=== PATIENT | female | born 1955 | race Caucasian/White ===

== ENCOUNTER 2022-05-16 19:30 | Outpatient (CLI) | payer MEDICARE, OTHER | END 2022-05-16 19:31 | disposition home or self-care (01) | LOC: SLEEPLAB 19:30 | PROVIDERS: ATTEND Internal Medicine | DX: G47.33 Obstructive sleep apnea (adult) (pediatric) (principal); R53.83 Other fatigue; I10 Essential (primary) hypertension; R06.83 Snoring; G47.10 Hypersomnia, unspecified; G47.00 Insomnia, unspecified; E66.9 Obesity, unspecified; Z68.42 Body mass index [BMI] 45.0-49.9, adult | CPT/HCPCS: 95811 ==

== ENCOUNTER 2024-06-06 15:57 | Outpatient (CLI) | payer MEDICARE, OTHER ==
[2024-06-06 17:38] LABS: #Basophils 0.11 10x3/uL (0.0-0.2); %Eosinophils 2.1 % (0.0-10.0); %Lymphocytes 36.7 % (21.0-51.0); %Monocytes 7.8 % (0.0-10.0); %Neutrophils 51.3 % (42.0-75.0); Hematocrit 40.8 % (36.0-47.0); Hemoglobin 14.4 g/dL (12.0-16.0); Mean Corpuscular HGB CONC 35.3 g/dL (32.0-36.0); Mean Corpuscular Hemoglobin 32.5 pg (27.0-31.0); Mean Corpuscular Volume 92.1 fL (78.0-98.0); Mean Platelet Volume 10.5 fL (7.4-10.4); Platelet Count 279 10x3/uL (130-400); RBC Distribution Width 13.3 % (11.5-14.5); Red Blood Cell (RBC) Count 4.43 mill/uL (4.20-5.40)
[2024-06-06 18:04] LABS: ALT (SGPT) 58 U/L (8-55); AST (SGOT) 49 U/L (5-34); Albumin 3.7 g/dL (3.4-4.8); Alkaline Phosphatase 151 U/L (40-110); Anion Gap 17 mmol/L (10-20); BUN (Urea Nitrogen) 7 mg/dL (9.8-20.1); Bilirubin, Direct 0.2 mg/dL (0.1-0.3); Bilirubin, Total 0.5 mg/dL (0.2-1.2); Calc. Creatinine Clearance 0 mL/min (70-130); Calcium 9.4 mg/dL (7.8-10.44); Carbon Dioxide 26 mmol/L (23-31); Chloride 99 mmol/L (98-107); Estimated GFR 93; Globulin 3.6 g/dL (2.4-3.5); Glucose 116 mg/dL (80-115); Potassium 3.7 mmol/L (3.5-5.1); Protein, Total 7.3 g/dL (5.8-8.1); Sodium 138 mmol/L (136-145)
== END 2024-06-06 15:58 | disposition home or self-care (01) ==
LOC: LABBT 15:57
PROVIDERS: ATTEND Surgery
DX: Z01.818 Encounter for other preprocedural examination (principal); K80.10 Calculus of gallbladder with chronic cholecystitis without obstruction
CPT/HCPCS: 80053; 80076; 85025; 93005; 93010

== ENCOUNTER 2024-06-08 07:34 | Inpatient (IN) | payer MEDICARE, OTHER ==
[2024-06-08] MEDS ORDERED: EPINEPHrine 1 MG/ML VIAL ONE (07:53)
[2024-06-08] MEDS ORDERED: Bupivacaine 0.25% HCL 30 ML VIAL ONE (07:54)
[2024-06-08] MEDS ORDERED: cefOXitin 2 GM VIAL ONE (08:09)
[2024-06-08] MEDS ORDERED: fentaNYL PF 100 MCG/2 ML SYRINGE ONE (08:20)
[2024-06-08] MEDS ORDERED: PROPOFOL 40 ML ONE (08:20)
[2024-06-08] MEDS ORDERED: Rocuronium Bromide 10 MG/ML (10ML VIAL) ONE (08:20)
[2024-06-08] MEDS ORDERED: Iopamidol 15 ML ONE ×2 (08:23)
[2024-06-08] MEDS ORDERED: diphenhydrAMINE 50 MG/ML VIAL ONE (08:41)
[2024-06-08] MEDS ORDERED: Metoclopramide HCl 10 MG (2 mL) VIAL ONE (08:41)
[2024-06-08] MEDS ORDERED: Ondansetron PF 4 MG/2 ML Vial ONE (08:41)
[2024-06-08] MEDS ORDERED: SUGAMMADEX SODIUM 200 MG/2 ML VIAL ONE (08:41)
[2024-06-08] MEDS ORDERED: Dexamethasone 20 MG/5 ML VIAL ONE (08:41)
[2024-06-08] MEDS ORDERED: Glucagon 1 MG/ML KIT ONE (09:12)
[2024-06-08] MEDS ORDERED: Ketorolac Tromethamine 30 MG (1 mL) VIAL ONE (09:38)
[2024-06-08] MEDS ORDERED: Labetalol HCl 100 MG/20 ML VIAL ONE (09:47)
[2024-06-08] MEDS ORDERED: Dextrose 5% in Water 1,000 ML IV PRN (10:01)
[2024-06-08] MEDS ORDERED: Promethazine HCl 25 MG/ML VIAL IM PRN ×2 (10:01→11:00)
[2024-06-08] MEDS ORDERED: hydrALAZINE 20 MG/ML VIAL SLOW IVP PRN (10:01)
[2024-06-08] MEDS ORDERED: Ipratropium/Albuterol 3 ML NEB NEB PRN (10:01)
[2024-06-08] MEDS ORDERED: HYDROcodone/Acetaminophen 10/325 mg Tablet PO PRN (10:01)
[2024-06-08] MEDS ORDERED: Glucagon 1 MG/ML KIT IM PRN (10:01)
[2024-06-08] MEDS ORDERED: Calcium Carbonate 500 MG ChewTAB PO PRN (10:01)
[2024-06-08] MEDS ORDERED: Dextrose 50% Abboject 50 ML SYRINGE SLOW IVP PRN (10:01)
[2024-06-08] MEDS ORDERED: Morphine 2 MG/ML VIAL SLOW IVP PRN (10:01)
[2024-06-08] MEDS ORDERED: Ondansetron PF 4 MG/2 ML Vial IVP PRN (10:01)
[2024-06-08] MEDS ORDERED: HYDROmorphone 0.5 MG/0.5 ML SYRINGE ONE ×2 (10:28→10:59)
[2024-06-08] MEDS ORDERED: Non-Formulary Medication 1 EACH PO PRN (10:47)
[2024-06-08] MEDS ORDERED: Ondansetron HCl/PF 4 MG/2 ML Vial IVP PRN (11:00)
[2024-06-08] MEDS ORDERED: HYDROmorphone 2 MG/ML VIAL SLOW IVP PRN (11:00)
[2024-06-08] MEDS ORDERED: fentaNYL 50 mcg/mL 1 mL Vial ONE ×2 (11:18→11:56)
[2024-06-08] MEDS ORDERED: D5 1/2 NS w/20 mEq KCL 1,000 ML ONE (13:12)
[2024-06-08] MEDS: D5 1/2 NS w/20 mEq KCL 1,000 ML IV SCH (13:59)
[2024-06-08] MEDS: Piperacillin/Tazobactam 3.375 GM in Sodium Chloride 0.9% 100 ML IVPB SCH ×2 (13:59→17:52)
[2024-06-08 14:11] VITALS: BMI 41.9
[2024-06-08] MEDS: Ketorolac Tromethamine 30 MG (1 mL) VIAL IVP SCH (15:28)
[2024-06-08] MEDS: Famotidine 20 MG TAB PO SCH (19:43)
[2024-06-08] MEDS: Famotidine/PF 20 mg/2ml Vial SLOW IVP SCH (19:44)
[2024-06-09 06:00] LABS: #Basophils 0.04 10x3/uL (0.0-0.2); %Basophils 0.2 % (0.0-1.0); %Eosinophils 0.3 % (0.0-10.0); %Lymphocytes 15.5 % (21.0-51.0); %Monocytes 7.2 % (0.0-10.0); %Neutrophils 75.7 % (42.0-75.0); Hematocrit 35.2 % (36.0-47.0); Mean Corpuscular HGB CONC 34.1 g/dL (32.0-36.0); Mean Corpuscular Hemoglobin 32.4 pg (27.0-31.0); Mean Corpuscular Volume 95.1 fL (78.0-98.0); Mean Platelet Volume 10.5 fL (7.4-10.4); Platelet Count 227 10x3/uL (130-400); RBC Distribution Width 13.8 % (11.5-14.5)
[2024-06-09 06:15] LABS: ALT (SGPT) 71 U/L (8-55); AST (SGOT) 53 U/L (5-34); Albumin 2.9 g/dL (3.4-4.8); Alkaline Phosphatase 98 U/L (40-110); Anion Gap 12 mmol/L (10-20); BUN (Urea Nitrogen) 5 mg/dL (9.8-20.1); Bilirubin, Total 0.3 mg/dL (0.2-1.2); Calc. Creatinine Clearance 155 mL/min (70-130); Calcium 8.4 mg/dL (7.8-10.44); Carbon Dioxide 23 mmol/L (23-31); Chloride 103 mmol/L (98-107); Estimated GFR 95; Globulin 2.9 g/dL (2.4-3.5); Glucose 218 mg/dL (80-115); Lipase 12 U/L (8-78); Potassium 4.3 mmol/L (3.5-5.1); Protein, Total 5.8 g/dL (5.8-8.1); Sodium 134 mmol/L (136-145)
[2024-06-09] MEDS ORDERED: Iopamidol 30 ML ONE (08:29)
[2024-06-09] MEDS ORDERED: SUCCINYLCHOLINE/SOD CL,ISO/PF 200 MG/10 ML SYRINGE FS ONE (12:04)
[2024-06-09] MEDS ORDERED: PHENYLEPHRINE-NS 100 MCG/ML 10 ML SYRINGE ONE (12:04)
[2024-06-09] MEDS ORDERED: Lidocaine 2% PF 5 ML VIAL ONE (12:04)
[2024-06-09] MEDS ORDERED: GLYCOPYRROLATE/PF 0.2 MG/ML VIAL ONE (12:04)
[2024-06-09] MEDS ORDERED: PROPOFOL 20 ML ONE (12:04)
[2024-06-09] MEDS ORDERED: Indomethacin 50 MG SUPP ONE ×2 (12:04→12:32)
[2024-06-09] MEDS ORDERED: fentaNYL 50 mcg/mL 1 mL Vial ONE (12:05)
[2024-06-09] MEDS ORDERED: ePHEDrine Sulfate 50 MG/10 ML VIAL ONE (13:08)
[2024-06-09] MEDS ORDERED: Dexamethasone 4 mg/ml Vial ONE (13:23)
[2024-06-09] MEDS ORDERED: Ondansetron PF 4 MG/2 ML Vial ONE (13:23)
[2024-06-09] MEDS: Pantoprazole DR 40 MG TAB PO SCH (14:39)
[2024-06-09] MEDS: Losartan 25 MG TAB PO SCH (14:50)
[2024-06-09] MEDS: Mag-Al 1200 mg/1200 mg/30 ML UDCUP PO PRN (14:52)
[2024-06-09] MEDS: Morphine 4 MG/ML VIAL SLOW IVP PRN (15:22)
[2024-06-09 16:31] LABS: #Basophils 0.05 10x3/uL (0.0-0.2); #Eosinophils Less than 0.03 10x3/uL (0.0-0.7); %Basophils 0.3 % (0.0-1.0); %Eosinophils 0.1 % (0.0-10.0); %Lymphocytes 15.5 % (21.0-51.0); %Monocytes 5.1 % (0.0-10.0); %Neutrophils 77.7 % (42.0-75.0); Hemoglobin 13.1 g/dL (12.0-16.0); Mean Corpuscular HGB CONC 34.5 g/dL (32.0-36.0); Mean Corpuscular Hemoglobin 32.3 pg (27.0-31.0); Mean Corpuscular Volume 93.8 fL (78.0-98.0); Mean Platelet Volume 10.6 fL (7.4-10.4); Platelet Count 229 10x3/uL (130-400); RBC Distribution Width 13.9 % (11.5-14.5); Red Blood Cell (RBC) Count 4.05 mill/uL (4.20-5.40)
[2024-06-09] MEDS: fentaNYL 50 mcg/mL 1 mL Vial SLOW IVP PRN (16:43)
[2024-06-09] MEDS: Pantoprazole 40 MG VIAL IVP SCH (16:43)
[2024-06-09 16:50] LABS: ALT (SGPT) 75 U/L (8-55); AST (SGOT) 47 U/L (5-34); Albumin 3.2 g/dL (3.4-4.8); Alkaline Phosphatase 103 U/L (40-110); Anion Gap 12 mmol/L (10-20); BUN (Urea Nitrogen) 7 mg/dL (9.8-20.1); Bilirubin, Total 0.4 mg/dL (0.2-1.2); Calc. Creatinine Clearance 148 mL/min (70-130); Calcium 8.5 mg/dL (7.8-10.44); Carbon Dioxide 27 mmol/L (23-31); Chloride 102 mmol/L (98-107); Estimated GFR 94; Globulin 3.3 g/dL (2.4-3.5); Glucose 175 mg/dL (80-115); Lipase 20 U/L (8-78); Potassium 4.2 mmol/L (3.5-5.1); Protein, Total 6.5 g/dL (5.8-8.1); Sodium 137 mmol/L (136-145)
[2024-06-09] MEDS: HYDROcodone/Acetaminophen 10/325 mg Tablet PO PRN (21:11)
[2024-06-10 05:41] LABS: #Basophils 0.05 10x3/uL (0.0-0.2); #Eosinophils Less than 0.03 10x3/uL (0.0-0.7); %Basophils 0.3 % (0.0-1.0); %Lymphocytes 18.3 % (21.0-51.0); %Monocytes 5.9 % (0.0-10.0); %Neutrophils 74.1 % (42.0-75.0); Hematocrit 34.4 % (36.0-47.0); Hemoglobin 11.7 g/dL (12.0-16.0); Mean Corpuscular Hemoglobin 32.6 pg (27.0-31.0); Mean Corpuscular Volume 95.8 fL (78.0-98.0); Mean Platelet Volume 10.7 fL (7.4-10.4); Platelet Count 221 10x3/uL (130-400); RBC Distribution Width 13.7 % (11.5-14.5); Red Blood Cell (RBC) Count 3.59 mill/uL (4.20-5.40)
[2024-06-10 06:04] LABS: ALT (SGPT) 60 U/L (8-55); AST (SGOT) 32 U/L (5-34); Albumin 2.9 g/dL (3.4-4.8); Alkaline Phosphatase 103 U/L (40-110); Anion Gap 11 mmol/L (10-20); BUN (Urea Nitrogen) 6 mg/dL (9.8-20.1); Bilirubin, Total 0.3 mg/dL (0.2-1.2); Calc. Creatinine Clearance 155 mL/min (70-130); Calcium 8.1 mg/dL (7.8-10.44); Carbon Dioxide 27 mmol/L (23-31); Chloride 100 mmol/L (98-107); Estimated GFR 95; Globulin 2.9 g/dL (2.4-3.5); Glucose 169 mg/dL (80-115); Potassium 4.1 mmol/L (3.5-5.1); Protein, Total 5.8 g/dL (5.8-8.1); Sodium 134 mmol/L (136-145)
[2024-06-10 08:13] VITALS: BP 118/66; TEMP 97.8
== END 2024-06-10 09:07 | disposition home or self-care (01) | DRG 418 ==
LOC: SDC 07:34 → SURG B 13:46
PROVIDERS: ADMIT Surgery; ATTEND Surgery
PROC: 0FT44ZZ Resection of Gallbladder, Percutaneous Endoscopic Approach (ICD-10-PCS; principal; 2024-06-08)
PROC: BF131ZZ Fluoroscopy of Gallbladder and Bile Ducts using Low Osmolar Contrast (ICD-10-PCS; 2024-06-08)
PROC: 8E0W4CZ Robotic Assisted Procedure of Trunk Region, Percutaneous Endoscopic Approach (ICD-10-PCS; 2024-06-08)
PROC: 0FC98ZZ Extirpation of Matter from Common Bile Duct, Via Natural or Artificial Opening Endoscopic (ICD-10-PCS; 2024-06-09)
DX: K80.42 Calculus of bile duct with acute cholecystitis without obstruction (principal); Z68.41 Body mass index [BMI] 40.0-44.9, adult; Z79.899 Other long term (current) drug therapy; I10 Essential (primary) hypertension; K21.9 Gastro-esophageal reflux disease without esophagitis; E66.9 Obesity, unspecified
CPT/HCPCS: 36415; 47532; 74176; 74330; 80053; 80076; 83690; 85025; 88304; 93005; C1889; C1894; J0171; J0665; J0694; J1100; J1200; J1611; J1885; J2272; J2405; J2470; J2543; J2704; J2765; J3010; J3480; J3490; Q9967; S2900

== ENCOUNTER 2024-06-11 09:53 | Emergency (ER) | payer MEDICARE, OTHER ==
[2024-06-11] MEDS ORDERED: fentaNYL 50 mcg/mL 1 mL Vial ONE ×2 (10:46→12:19)
[2024-06-11] MEDS ORDERED: Pantoprazole 40 MG VIAL ONE (10:46)
[2024-06-11 10:48] LABS: %Basophils 0.8 % (0.0-1.0); %Eosinophils 1.9 % (0.0-10.0); %Monocytes 7.1 % (0.0-10.0); Hemoglobin 12.4 g/dL (12.0-16.0); Mean Corpuscular HGB CONC 33.5 g/dL (32.0-36.0); Mean Corpuscular Volume 95.4 fL (78.0-98.0); Mean Platelet Volume 10.4 fL (7.4-10.4); Platelet Count 239 10x3/uL (130-400); RBC Distribution Width 13.8 % (11.5-14.5); Red Blood Cell (RBC) Count 3.88 mill/uL (4.20-5.40)
[2024-06-11 11:04] LABS: BHCG - Serum Negative (NEGATIVE); Pregs Control Bar Appear? YES (CONTROL BAR)
[2024-06-11 11:05] LABS: Pregs Control Background? CLEAR/WHITE (CLR/WHITE)
[2024-06-11 11:07] LABS: Prothrombin Time 13.4 sec (12.0-14.7)
[2024-06-11 11:08] LABS: ALT (SGPT) 47 U/L (8-55); AST (SGOT) 23 U/L (5-34); Albumin 3.1 g/dL (3.4-4.8); Alkaline Phosphatase 95 U/L (40-110); Anion Gap 13 mmol/L (10-20); BUN (Urea Nitrogen) 11 mg/dL (9.8-20.1); Bilirubin, Total 0.3 mg/dL (0.2-1.2); Calc. Creatinine Clearance 0 mL/min (70-130); Calcium 9.1 mg/dL (7.8-10.44); Carbon Dioxide 29 mmol/L (23-31); Chloride 103 mmol/L (98-107); Estimated GFR 95; Glucose 123 mg/dL (80-115); Lipase 17 U/L (8-78); PTT 25.7 sec (22.9-36.1); Potassium 3.6 mmol/L (3.5-5.1); Protein, Total 6.1 g/dL (5.8-8.1); Sodium 141 mmol/L (136-145)
[2024-06-11 12:28] LABS: Bacteria/HPF None Seen HPF (None Seen); Bilirubin Negative (Negative); Blood, Urine Negative (Negative); CAUTI Indications for Culture Dysuria,urgency,freq; Clarity Clear (Clear); Glucose, Urine (Dipstick) Normal (Negative); Ketone, Urine Negative (Negative); Leukocyte Negative Leu/uL (Negative); Nitrite Negative (Negative); Protein, Urine (Dipstick) Negative (Neg-Trace); RBC/HPF None Seen HPF (0-3); Squamous Epithelial 0-3 HPF (0-3); Urobilinogen Normal mg/dL (Less than 2); WBC/HPF None Seen HPF (0-3); pH, Urine 7.5 (5.0-9.0)
[2024-06-11 12:41] LABS: Specific Gravity, Urine 1.006 (1.002-1.036)
[2024-06-11] MEDS ORDERED: Iopamidol-370 76% 500 ML MDV (1 ML CHARGE) ONE (12:41)
[2024-06-11 12:42] LABS: Urine Culture Reflex No No
== END 2024-06-11 12:39 | disposition home or self-care (01) ==
LOC: ERS 09:53
DX: G89.18 Other acute postprocedural pain (principal); K59.00 Constipation, unspecified; K57.90 Diverticulosis of intestine, part unspecified, without perforation or abscess without bleeding; I10 Essential (primary) hypertension; R10.11 Right upper quadrant pain
CPT/HCPCS: 74177; 80053; 81001; 83605; 83690; 84703; 85025; 85610; 85730; 96374; 96375; 96376; 99284; J2470; J3010; Q9967; 36415; 82274